=== PATIENT | female | born 2000 | race African-American/Black ===

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

== ENCOUNTER 2023-11-12 11:50 | Emergency (ER) | payer BC, MEDICAID ==
[~2023-11-12] VITALS: Ht 167.6 cm; Wt 100.0 kg
[~2023-11-12 11:50] MED LIST: ACET-2708 PO
[2023-11-12 11:58] VITALS: BP 159/100; PULSE 70; RESP 16; TEMP 98.2; O2SAT 99
[2023-11-12] MEDS ORDERED: CEPH500C2 MT (13:20)
[2023-11-12] MEDS ORDERED: SULF1TAB48 MT (13:20)
== END 2023-11-12 13:54 | disposition home or self-care (01) ==
LOC: ER 11:50
DX: S40.862A Insect bite (nonvenomous) of left upper arm, initial encounter (principal); S40.861A Insect bite (nonvenomous) of right upper arm, initial encounter; W57.XXXA Bitten or stung by nonvenomous insect and other nonvenomous arthropods, initial encounter; Y93.89 Activity, other specified; Y92.89 Other specified places as the place of occurrence of the external cause; Y99.8 Other external cause status
CPT/HCPCS: 99283